=== PATIENT | female | born 1975 | race Caucasian/White ===

== ENCOUNTER 2021-03-07 00:41 | Emergency (ER) | payer OTHER ==
[~2021-03-07] VITALS: Ht 162.6 cm; Wt 68.0 kg
[~2021-03-07 00:41] MED LIST: ADDERALL 20 MG20 M1 PO; AMOXICILLIN 50500 M1 PO; BACTRIM DS TAB1 EACH PO; FLEXERIL PO; HYDROCODONE-APA1 TA1 PO; LIORESAL 10 MG10 MG PO; NORCO 5-325 TA1 EACH PO; PAXIL10 MG; PAXIL20 MG PO; ULTRAM 50MG TAB50 MG PO; [UNRECOGNIZED DRUG - OTHER]
[2021-03-07] MEDS ORDERED: STRATTERA80 MG PO (00:58)
[2021-03-07] MEDS ORDERED: PHENERGAN 25 MG25 M1 PO (02:57)
[2021-03-07 03:18] VITALS: BP 120/88
== END 2021-03-07 03:18 | disposition home or self-care (01) ==
LOC: M.ERS 00:41
DX: G43.909 Migraine, unspecified, not intractable, without status migrainosus (principal); Z88.8 Allergy status to other drugs, medicaments and biological substances; Z98.890 Other specified postprocedural states